=== PATIENT | female | born 1985 | race Caucasian/White ===

== ENCOUNTER 2020-11-04 23:17 | Observation (INO) | payer OTHER ==
[~2020-11-04] VITALS: Ht 167.6 cm; Wt 56.7 kg
[2020-11-04] MEDS ORDERED: IRON325T9 PO (23:29)
[2020-11-04] MEDS ORDERED: MULTTAB20 PO (23:29)
[2020-11-04] MEDS ORDERED: NS 1,000 ML IV ONE (23:45)
[2020-11-05 00:15] LABS: HEMATOCRIT 41.5 % (36.0-47.0); HEMOGLOBIN 14.3 g/dl (12.0-15.5); MEAN CORPUSCULAR HEMOGLOBIN 32.9 pg (27.0-33.0); MEAN CORPUSCULAR HGB CONC 34.5 g/dl (32.0-36.5); MEAN CORPUSCULAR VOLUME 95.4 fl (80.0-96.0); PLATELET COUNT, AUTOMATED 251 10^3/uL (150-450); RED BLOOD COUNT 4.35 10^6/uL (4.00-5.40); WHITE BLOOD COUNT 9.9 10^3/uL (4.0-10.0)
[2020-11-05 00:38] LABS: ALBUMIN 3.9 GM/DL (3.2-5.2); ALT/SGPT 15 U/L (12-78); BILIRUBIN,DIRECT 0.1 MG/DL (0.0-0.2); BILIRUBIN,TOTAL 0.5 MG/DL (0.2-1.0); BLOOD UREA NITROGEN 10 MG/DL (7-18); CALCIUM LEVEL 9.1 MG/DL (8.5-10.1); CARBON DIOXIDE LEVEL 28 MEQ/L (21-32); CHLORIDE LEVEL 105 MEQ/L (98-107); CREATININE FOR GFR 0.81 MG/DL (0.55-1.30); GLOMERULAR FILTRATION RATE > 60.0 (>60); GLUCOSE, FASTING 74 MG/DL (70-100); HCG, SERUM QUANTITATIVE 320 MIU/ML; POTASSIUM SERUM 3.4 MEQ/L (3.5-5.1); SODIUM LEVEL 138 MEQ/L (136-145); TOTAL PROTEIN 7.2 GM/DL (6.4-8.2)
[2020-11-05 00:42] LABS: ATYPICAL LYMPH 2 % (0-5); BASOPHILS 1 % (0-1); EOSINOPHILS 1 % (0-3); LYMPHOCYTES 41 % (16-44); MONOCYTES 3 % (0-5); NEUTROPHILS 52 % (28-66)
[2020-11-05 00:43] LABS: PLATELET ESTIMATE NORMAL (NORMAL)
[2020-11-05 00:53] LABS: INR 1.01; PROTHROMBIN TIME 13.5 SECONDS (12.5-14.3)
[2020-11-05 00:54] LABS: PARTIAL THROMBOPLASTIN TIME 31.8 SECONDS (24.2-38.5)
[2020-11-05] MEDS ORDERED: ISOVUE-370 76% 100ML VIAL As Ordered ONE (01:06)
--- NOTE | 2020-11-05 01:42 | REPVR ---
PROCEDURE INFORMATION: Exam: US Pelvis Complete, Transabdominal and US Pelvis, Transvaginal Exam date and time: 11/05/2020 1:12 AM Age: 35 years old Clinical indication: Menstruation abnormalities; Excessive menstruation; Other: Post and iud placement; Additional info: Recent severe bleeding, concern for rpoc TECHNIQUE: Imaging protocol: Real-time transabdominal and transvaginal pelvic ultrasound (complete) with image documentation. Transvaginal imaging was used for better evaluation of the endometrium, adnexa, and/or cervix. COMPARISON: No relevant prior studies available. FINDINGS: Uterus/cervix: The uterus measures 10.9 cm in its cephalocaudad dimension and 4.4 cm in its AP dimension transabdominal. The uterus measures 10.1 cm in its cephalocaudad dimension and 4.8 cm in its AP dimension transvaginal. The endometrium is thick measuring 22 mm. There is an IUD which is eccentrically placed at the margin of the endometrium and may extend into the myometrium. Right adnexa: The right ovary measures 2.5 x 1.6 x 3.1 cm with normal arterial and venous blood flow. Left adnexa: The left ovary measures 2.8 x 2.2 x 1.4 cm with normal arterial and venous blood flow. Intraperitoneal space: No intraperitoneal fluid. Urinary bladder: The urinary bladder appears normal. IMPRESSION: 1. Thickened endometrium measuring 22 mm with eccentrically positioned IUD along the endometrial margin and may extend into the myometrium. 2. Otherwise negative pelvic sonogram. Electronically signed by: Abiodun Villagran On 11/05/2020 01:42:48 AM
[2020-11-05] MEDS ORDERED: MULTTAB20 PO (01:50)
--- NOTE | 2020-11-05 01:50 | REPVR ---
PROCEDURE INFORMATION: Exam: CT Abdomen And Pelvis With Contrast Exam date and time: 11/05/2020 12:49 AM Age: 35 years old Clinical indication: Other: Vag bleeding; Prior surgery; Surgery date: 3-7 days post-operative; Surgery type: S/P vac x 6 days S/P iud placement x 1 day; Additional info: Heavy vaginal bleeding, severe lower abd pain TECHNIQUE: Imaging protocol: Computed tomography of the abdomen and pelvis with contrast. Radiation optimization: All CT scans at this facility use at least one of these dose optimization techniques: automated exposure control; mA and/or kV adjustment per patient size (includes targeted exams where dose is matched to clinical indication); or iterative reconstruction. Contrast material: ISO; Contrast volume: 100 ml; Contrast route: INTRAVENOUS (IV); COMPARISON: US PELVIC NON-OB COMPLETE 11/05/2020 12:31 AM FINDINGS: Liver: 6 mm low-attenuation focus in the lateral right hepatic lobe which is nonspecific. Gallbladder and bile ducts: Normal. No calcified stones. No ductal dilation. Pancreas: Normal. No ductal dilation. Spleen: Normal. No splenomegaly. Adrenal glands: Normal. No mass. Kidneys and ureters: Normal. No hydronephrosis. Stomach and bowel: Unremarkable. No obstruction. No mucosal thickening. Appendix: A normal appendix is seen. Intraperitoneal space: Unremarkable. No free air. No significant fluid collection. Vasculature: Unremarkable. No abdominal aortic aneurysm. Lymph nodes: Unremarkable. No enlarged lymph nodes. Urinary bladder: Unremarkable as visualized. Reproductive: Thickened heterogeneous endometrial cavity measuring 2.8 cm in thickness. There is an IUD in position which is obliquely oriented. 1 short limb extends anteriorly into the fundus with question of complete penetration through the myometrium. The other short limb extends into the left lateral aspect of the junctional zone between endometrium and myometrium. The long limb extends into the right lateral margin and into the apparent junctional zone. The vagina is distended with heterogeneous fluid which may reflect blood clot. There is a small focus of high density toward the lower uterine segment/cervix which may reflect a site of active bleed. Bones/joints: Unremarkable. No acute fracture. Soft tissues: Unremarkable. IMPRESSION: 1. Thickened heterogeneous endometrium measuring 2.8 cm in thickness which may reflect blood clot. The vagina is also distended and filled with heterogeneous low attenuation material which may reflect blood clot. There is a site of high density in the lower uterine segment/cervix which may reflect a site of active bleeding. 2. Obliquely position and IUD in the uterus. 1 short limb projects anteriorly into the fundus and into myometrium with question of complete penetration of the myometrium. The other short limb extends to the junctional zone on the left laterally and the long limb extends into the junctional zone on the right laterally. 3. Otherwise negative CT abdomen/pelvis. Electronically signed by: Abiodun Villagran On 11/05/2020 01:51:05 AM
[2020-11-05] MEDS ORDERED: METHYLERGONOVINE MALEATE 0.2 MG/ML VIAL (J2210) IV STA (02:11)
[2020-11-05 02:38] LABS: RSV AMPLIFICATION NEGATIVE (NEGATIVE)
[2020-11-05 02:39] LABS: BASO # 0.1 10^3/uL (0.0-0.2); BASO % 0.8 % (0.0-1.0); EOS # 0.4 10^3/uL (0.0-0.5); HEMATOCRIT 33.4 % (36.0-47.0); LYMPH # 3.9 10^3/uL (1.5-5.0); LYMPH % 42.5 % (24.0-44.0); MEAN CORPUSCULAR HEMOGLOBIN 32.5 pg (27.0-33.0); MEAN CORPUSCULAR HGB CONC 34.4 g/dl (32.0-36.5); MEAN CORPUSCULAR VOLUME 94.4 fl (80.0-96.0); MONO # 0.6 10^3/uL (0.0-0.8); MONO % 6.3 % (2.0-8.0); NEUTROPHILS # 4.2 10^3/uL (1.5-8.5); NEUTROPHILS % 45.6 % (36.0-66.0); PLATELET COUNT, AUTOMATED 197 10^3/uL (150-450); RED BLOOD COUNT 3.54 10^6/uL (4.00-5.40); WHITE BLOOD COUNT 9.3 10^3/uL (4.0-10.0)
[2020-11-05 03:00] LABS: HEMOGLOBIN 11.5 g/dl (12.0-15.5)
[2020-11-05] MEDS ORDERED: LR 1,000 ML IV ONE (03:45)
[2020-11-05] MEDS ORDERED: METHYLERGONOVINE MALEATE 0.2 MG TAB PO SCH ×3 (04:00→12:00)
[2020-11-05 05:00] VITALS: BP 113/69
[2020-11-05] MEDS ORDERED: medroxyPROGESTERone ACET IM SUSP 150 MG/ML VIAL (J1050) IM ONE (05:00)
[2020-11-05] MEDS: LR 1,000 ML IV SCH ×2 (05:21→13:08)
[2020-11-05 07:06] LABS: HEMATOCRIT 30.4 % (36.0-47.0); HEMOGLOBIN 10.4 g/dl (12.0-15.5)
[2020-11-05 09:44] VITALS: BP 115/62
[2020-11-05 10:30] VITALS: BP 110/71
[2020-11-05 11:35] VITALS: BP 102/59
[2020-11-05 14:35] LABS: HEMATOCRIT 26.6 % (36.0-47.0); HEMOGLOBIN 9.2 g/dl (12.0-15.5)
[2020-11-05] MEDS ORDERED: METH0.2T53 PO (16:30)
[2020-11-05] MEDS ORDERED: CYTO200T PO (16:30)
== END 2020-11-05 17:05 | disposition home or self-care (01) ==
LOC: M ED 23:17 → M ED INP 23:18 → INTOOBSV 11-05 03:19 → UNDOADMOB 11-05 03:19 → ENRESERV 11-05 03:58 → M PED 11-05 05:01 → M ED INP 11-05 05:01 → M PED 11-05 05:01 → UNDODISOB 11-05 17:05
PROVIDERS: ADMIT Obstetrics & Gynecology; ATTEND Obstetrics & Gynecology
DX: T83.39XA Other mechanical complication of intrauterine contraceptive device, initial encounter (principal); N93.9 Abnormal uterine and vaginal bleeding, unspecified; F17.218 Nicotine dependence, cigarettes, with other nicotine-induced disorders
CPT/HCPCS: 36415; 74177; 76830; 76856; 80048; 80076; 84702; 85014; 85018; 85025; 85610; 85730; 86850; 86870; 86900; 86901; 87631; 93041; 93976; 94760; 96361; 96372; 96374; 96375; 99285; J1050; J2210; Q9967

== ENCOUNTER → 2020-12-26 | Outpatient (REF) | payer OTHER ==
[~2020-12-26] MED LIST: CYTO200T PO; IRON325T9 PO; METH0.2T53 PO; MULTTAB20 PO
[2020-12-26 15:42] LABS: HEMATOCRIT 41.8 % (36.0-47.0); MEAN CORPUSCULAR HEMOGLOBIN 32.4 pg (27.0-33.0); MEAN CORPUSCULAR HGB CONC 33.5 g/dl (32.0-36.5); MEAN CORPUSCULAR VOLUME 96.8 fl (80.0-96.0); PLATELET COUNT, AUTOMATED 238 10^3/uL (150-450); RED BLOOD COUNT 4.32 10^6/uL (4.00-5.40)
[2020-12-26 16:22] LABS: ALBUMIN 3.9 GM/DL (3.2-5.2); ALT/SGPT 16 U/L (12-78); BILIRUBIN,TOTAL 0.4 MG/DL (0.2-1.0); BLOOD UREA NITROGEN 10 MG/DL (7-18); CALCIUM LEVEL 9.1 MG/DL (8.5-10.1); CARBON DIOXIDE LEVEL 25 MEQ/L (21-32); CHLORIDE LEVEL 109 MEQ/L (98-107); CREATININE FOR GFR 0.91 MG/DL (0.55-1.30); FERRITIN 13 NG/ML (8-252); FREE T4 0.95 NG/DL (0.76-1.46); GLOMERULAR FILTRATION RATE > 60.0 (>60); GLUCOSE, FASTING 87 MG/DL (70-100); SODIUM LEVEL 140 MEQ/L (136-145); THYROID STIMULATING HORMONE 0.923 uIU/ML (0.358-3.740); TOTAL 25(OH) VITAMIN D 20.7 NG/ML (30.0-100.0); TOTAL PROTEIN 7.2 GM/DL (6.4-8.2)
== END ==
LOC: M SFHCPLAZ 14:11
PROVIDERS: ATTEND Nurse Practitioner Family
DX: D50.8 Other iron deficiency anemias (principal); F41.9 Anxiety disorder, unspecified; J30.2 Other seasonal allergic rhinitis

== ENCOUNTER 2021-07-29 16:43 | Emergency (ER) | payer OTHER ==
[~2021-07-29] VITALS: Ht 167.6 cm; Wt 62.5 kg
[2021-07-29 16:44] VITALS: BP 124/85
--- OUTSIDE RECORDS SUMMARY | 2021-07-29 16:51 | CCD ---
Author Author [facility] Organization [facility] Address Unknown Phone Unavailable Care Team Providers Care Air Pollution Specialist Name Role Phone Shawn Domingo Unavailable [phone] Shawn Domingo Unavailable [phone] Shawn Domingo Unavailable [phone] Shawn Domingo Unavailable [phone] Shawn Domingo Unavailable [phone] Shawn Domingo Unavailable [phone] Re-disclosure Warning The records that you are about to access may contain information from federally-assisted alcohol or drug abuse programs. If such information is present, then the following federally mandated warning applies: This information has been disclosed to you from records protected by federal confidentiality rules (42 CFR part 2). The federal rules prohibit you from making any further disclosure of this information unless further disclosure is expressly permitted by the written consent of the person to whom it pertains or as otherwise permitted by 42 CFR part 2. A general authorization for the release of medical or other information is NOT sufficient for this purpose. The Federal rules restrict any use of the information to criminally investigate or prosecute any alcohol or drug abuse patient.The records that you are about to access may contain highly sensitive health information, the redisclosure of which is protected by Article 27-F of the [facility] Public Health law. If you continue you may have access to information: Regarding HIV / AIDS; Provided by facilities licensed or operated by the [facility] Office of Mental Health; or Provided by the [facility] Office for People With Developmental Disabilities. If such information is present, then the following [facility] mandated warning applies: This information has been disclosed to you from confidential records which are protected by state law. State law prohibits you from making any further disclosure of this information without the specific written consent of the person to whom it pertains, or as otherwise permitted by law. Any unauthorized further disclosure in violation of state law may result in a fine or long term sentence or both. A general authorization for the release of medical or other information is NOT sufficient authorization for further disc losure. Encounters Encounter Providers Location Date Indications Data Source(s ) Outpatient Attender: Shawn Domingo 07/28 08:59:45 PM EST - 07/28/2021 09:42:37 PM EST [facility] Medications No Information Insurance Providers Payer name Policy type / Coverage type Policy ID Covered constitution party ID Covered constitution party's relationship to cancino Policy C[place] Plan Information [facility] [facility] [employer] [id number] Self [id number] [facility] [id number] SP [id number] [facility] [id number] SP [id number] [facility] CARE [id number] [facility] [id number] [facility] [id number] SP [id number] [id number] [facility] [id number] Problems, Conditions, and Diagnoses No Information Surgeries/Procedures No Information Results ID Date Data Source [id number] 11/05/2020 01:44:00 AM EST [facility] Name Value Range Interpretation Code Description Data Uma rce(s) Supporting Document(s) SARS coronavirus 2 RNA [Presence] in Res piratory specimen by ANA with probe detection NEGATIVE [facility] This lab was ordered by [facility] a nd reported by [facility]. Procedure Social History No Information
[2021-07-29] MEDS ORDERED: MULT-90 PO (17:04)
--- OUTSIDE RECORDS SUMMARY | 2021-07-30 01:06 | CCD ---
Author Author [facility] Organization [facility] Address Unknown Phone Unavailable Care Team Providers Care Fourdrinier Tender Name Role Phone Shawn Domingo Unavailable [phone] Shawn Domingo Unavailable [phone] Shawn Domingo Unavailable [phone] Shawn Domingo Unavailable [phone] Shawn Domingo Unavailable [phone] Shawn Domingo Unavailable [phone] Re-disclosure Warning The records that you are [...] is protected by Article 27-F of the [facility] Public Health law. If you continue you may have access to information: Regarding HIV / AIDS; Provided by facilities licensed or operated by the [facility] Office of Mental Health; or Provided by the [facility] Office for People With Developmental Disabilities. If such information is present, then the following [facility] mandated warning applies: This information has been [...] law may result in a fine or fci sentence or both. A general authorization for the release of medical or other information is NOT sufficient authorization for further disc losure. Encounters Encounter Providers Location Date Indications Data Source(s ) Outpatient Attender: Shawn Domingo 07/28 08:59:45 PM EST - 07/28/2021 09:42:37 PM EST [facility] ) Medications No Information Insurance Providers Payer name Policy type / Coverage type Policy ID Covered green party ID Covered green party's relationship to cancino Policy [place] Plan Information [facility] [employer] [facility] Commercial [employer] Co. [id number] Self [id number] [facility] [id number] SP [id number] [facility] [id number] SP [id number] [facility] CARE [id number] [facility] [id number] [facility] [id number] SP [id number] [id number] [facility] [id number] Problems, Conditions, and Diagnoses No Information Surgeries/Procedures No Information Results ID Date Data Source [id number] 11/05/2020 01:44:00 AM EST [facility] Name Value Range Interpretation Code Description Data Uma rce(s) Supporting Document(s) SARS coronavirus 2 RNA [Presence] in Res piratory specimen by ANA with probe detection NEGATIVE [facility] This lab was ordered by [facility] a nd reported by [facility]. Procedure Social History No Information
== END 2021-07-30 01:01 | disposition left against medical advice (07) ==
LOC: M ED 16:43
DX: Z53.21 Procedure and treatment not carried out due to patient leaving prior to being seen by health care provider (principal)

== ENCOUNTER 2022-01-08 08:15 | Emergency (ER) | payer OTHER ==
[~2022-01-08] VITALS: Ht 167.6 cm; Wt 59.9 kg
[~2022-01-08 08:15] MED LIST changes: +MULT-90 PO
[2022-01-08 08:31] VITALS: BP 136/86
== END 2022-01-08 11:00 | disposition left against medical advice (07) ==
LOC: M ED 08:15
DX: Z53.29 Procedure and treatment not carried out because of patient's decision for other reasons (principal)

== ENCOUNTER → 2022-12-01 | Emergency (ER) | payer OTHER ==
[~2022-12-01] VITALS: Ht 167.6 cm; Wt 57.6 kg
[~2022-12-01] MED LIST changes: +ASPI81CH33 PO; +IRON65TA2
[2022-12-01 03:19] VITALS: BP 143/76
== END | disposition left against medical advice (07) ==
LOC: M ED 03:18
DX: R20.9 Unspecified disturbances of skin sensation (principal); Z53.21 Procedure and treatment not carried out due to patient leaving prior to being seen by health care provider

== ENCOUNTER 2025-08-22 09:01 | Emergency (ER) | payer OTHER ==
[~2025-08-22] VITALS: Ht 167.6 cm; Wt 57.4 kg
[~2025-08-22 09:01] MED LIST changes: +FERR325T14 PO; -IRON325T9 PO
[2025-08-22 09:03] VITALS: BP 134/82; TEMP 98.3; O2SAT 96
== END 2025-08-22 11:08 | disposition left against medical advice (07) ==
LOC: M ED 09:01
DX: Z53.21 Procedure and treatment not carried out due to patient leaving prior to being seen by health care provider (principal)